=== PATIENT | female | born 1955 | race Hispanic/Latino ===

== ENCOUNTER 2018-07-12 06:07 | Inpatient (IN) | payer MEDICARE ==
[2018-06-30 15:07] VITALS: BMI 41.5
--- NOTE | 2018-07-12 07:19 | CP.PCM.CON ---
History of Present Illness - History of Present Illness History of Present Illness: Orthopedic consult: Dr. Serna Patient is a 63 y/o female who presents for elective revision right total knee replacement. The patient has a history of R TKA performed in 2014. In March 2019, she reports a twisting injury and an additional fall injury days later during her trip to [place]. Following her trip, she has had progressive pain and dysfunction of her right knee hindering her usual activities such as walking, stair-climbing and transferring from the bed. She has had to use a cane for the past few months due to the pain. Her pain is resistant to conservative means as exercises and oral medications. She denies any thromboembolic or cardiac events. She currently denies CP/SOB/N/V/D/fever/dysuria/melena. PMH: Asthma, gastric ulcer, RA, hypothyroidism PSH: R TKA 2014, L TKA and revision TKA 2013, b/l knee arthroscopies, meds: prednisone, Rituxan, CoQ10 allergy:PCN, celebrex(rash), melon SH: denies tobacco, ETOH socially Review of Systems - Review of Systems All systems: reviewed and no additional remarkable complaints except Review of Systems: as per HPI Past Patient History - Past Medical History & Family History Past Medical History?: Yes Past Family History: Reviewed and not pertinent - Past Social History Smoking Status: Never Smoked Alcohol: Social Drugs: Denies - CARDIAC Hx Cardiac Disorders: No - PULMONARY Hx Respiratory Disorders: Yes Hx Asthma: Yes Hx Pneumonia: Yes Other/Comment: INTERSTITIAL LUNG DISEASE - NEUROLOGICAL Hx Neurological Disorder: No - HEENT Hx HEENT Problems: Yes Hx Cataracts: Yes - RENAL Hx Chronic Kidney Disease: No - ENDOCRINE/METABOLIC Hx Endocrine Disorders: Yes Hx Hypothyroidism: Yes - HEMATOLOGICAL/ONCOLOGICAL Hx Blood Disorders: No Hx Blood Transfusions: No - INTEGUMENTARY Hx Dermatological Problems: No - MUSCULOSKELETAL/RHEUMATOLOGICAL Hx Musculoskeletal Disorders: Yes Hx Arthritis: Yes Hx Back Pain: Yes Hx Falls: Yes Hx Osteoarthritis: Yes Hx Rheumatoid Arthritis: Yes Other/Comment: MUSCLE WEAKNESS;LIMITED JOINT MOTION - GASTROINTESTINAL Hx Gastrointestinal Disorders: No - GENITOURINARY/GYNECOLOGICAL Hx Genitourinary Disorders: No - PSYCHIATRIC Hx Emotional Abuse: No Hx Physical Abuse: No - SURGICAL HISTORY Hx Surgeries: Yes Hx Arthroscopy: Yes (ROYER KNEE) Hx Cataract Extraction: Yes (2015 both eyes) Hx Joint Replacement: Yes (LEFT [id number] .RIGHT KNEE DECEMBER 2014) Other/Comment: RIGHT EYE RETINAL REPAIR-2016;SINUS SURGERY-2008;LAP BANDING - 2007 AND AFTER 2 WEEKS REMOVAL OF LAP BAND SECONDARY TO ALLERGY-2005;[id number] KNEE MENISCUS REPAIR;2013-LEFT TOTAL KNEE REPLACEMENT;[id number] OF LEFT KNEE;DECEMBER 2014-RIGHT TOTAL KNEE REPLACEMENT - ANESTHESIA Hx Anesthesia: Yes Hx Anesthesia Reactions: Yes (NAUSEA/VOMITTING;URINARY RETENTION) Hx Malignant Hyperthermia: No Has any member of the family had a problem w/ anesthesia?: No Meds Allergies/Adverse Reactions: Allergies Allergy/AdvReac Type Severity Reaction Status Date / Time celecoxib [From Celebrex] Allergy RASH Verified 06/30/18 15:09 leflunomide [From Arava] Allergy SWELLING Verified 06/30/18 15:08 melon Allergy SWELLING Verified 06/30/18 15:10 Penicillins Allergy RASH Verified 06/30/18 15:09 Physical Exam - Constitutional Appears: Well, No Acute Distress - Head Exam Head Exam: ATRAUMATIC, NORMOCEPHALIC - Eye Exam Eye Exam: EOMI, Normal appearance, PERRL - ENT Exam ENT Exam: Mucous Membranes Moist - Respiratory Exam Respiratory Exam: NORMAL BREATHING PATTERN - Cardiovascular Exam Cardiovascular Exam: +S1, +S2 - GI/Abdominal Exam GI & Abdominal Exam: Soft. absent: Tenderness - Extremities Exam Additional comments: R knee: midline incision well healed diffuse tenderness mild effusion and swelling ROM 0-90 deg sensation intact SP/DP/TN motor intact EHl/FHl/TA/G pedal pulses intact calves soft NT b/l - Neurological Exam Neurological exam: Alert, Oriented x3 - Psychiatric Exam Psychiatric exam: Normal Affect, Normal Mood - Skin Skin Exam: Normal Color, Warm Results - Vital Signs Recent Vital Signs: Last Vital Signs Temp 98.4 F 07/12/18 06:48 Pulse 73 07/12/18 06:48 Resp 18 07/12/18 06:48 BP 116/75 07/12/18 06:48 Pulse Ox 99 07/12/18 06:48 - Labs Result Diagrams: 07/12/18 07:31 Assessment & Plan (1) Painful total knee replacement, right Assessment and Plan: -OR today for revision R TKA with Dr. Serna -Risks/benefits/alternatives were explained to patient who understands and agrees to proceed with procedure above -Medical clearance in chart -Solumedrol 50mg IV x 3 doses then resume daily prednisone postop -TXA 1gm prior to procedure -above d/w Dr. Serna in agreement Status: Acute
[2018-07-12] MEDS ORDERED: methylPREDNISolone 50 MG in Sodium Chloride 0.9% 50 ML IV STA ×2 (07:34→08:00)
[2018-07-12 07:38] LABS: BASO % 0.7 % (0.0-2.0); EOS # 0.2 K/uL (0.0-0.7); EOS % 2.8 % (0.0-4.0); LYMPH # 1.6 K/uL (1.0-4.3); LYMPH % 28.8 % (20.0-40.0); MEAN CELL VOLUME 94.3 fl (81.0-99.0); MEAN CORPUSCULAR HEMOGLOBIN 31.8 pg (27.0-31.0); MEAN CORPUSCULAR HGB CONC 33.8 g/dL (33.0-37.0); MEAN PLATELET VOLUME 8.2 fl (7.2-11.7); MONO # 0.5 K/uL (0.0-0.8); MONO % 9.2 % (0.0-10.0); NEUT # 3.3 K/uL (1.8-7.0); NEUT % 58.5 % (50.0-75.0); NRBC % 0.1 % (0.0-0.0); RBC 4.08 Mil/uL (3.80-5.20); WHITE BLOOD COUNT 5.6 K/uL (4.8-10.8)
--- NOTE | 2018-07-12 07:45 | CP.PCM.HP ---
<Brooks Crabtree - Last Filed: 07/12/18 10:41> History of Present Illness - History of Present Illness History of Present Illness: 63 y/o Female with PMHx of Upper Interstitial lung disease, rheumatoid arthritis, hypothyroidism, Asthma, and hyperlipidemia was seen and evaluated in Same day Surgery for Right Knee Revisional Surgery today with Dr. France. Patient reports she had RIGHT total knee replacement in December of 2014, and then in March of 2018 she twisted her knee, and fell. Patient reports pain since the fall, exacerbated by walking and activity and alleviated by rest. Patient reports seeing physical therapy with no relief. Patient reports moderate activity at home. Patient lives in a single-level home with 4 stairs. Patient uses a cane at this time for ambulation. Patient with recent hx of Pneumonia from April 2018, completed 3 weeks of Levaquin. Patient states she takes R ituxan Q6, last took in November 2017. Patient denies fever, nausea, vomiting, shortness of breath, abdominal pain, dysuria, polyuria or chest pain at this time. Patient's NPO status was confirmed. Patient's present at bedside. Allergies: Celecoxib, Leflunomide, Melon, penicillins Medication: see med reconciliation PMH: as mentioned PSH: Total RIGHT hip replacement (December 2014) Social: denies smoke drinking or drug use PMD: Dr. Salazar Template Checker: Dr. Uriostegui Patient medical and cardiac clearance noted in chart Normal PFTs Present on Admission - Present on Admission Any Indicators Present on Admission: Yes Review of Systems - Constitutional Constitutional: absent: Chills, Fever - EENT Eyes: absent: Blurred Vision, Change in Vision Ears: absent: Dizziness - Cardiovascular Cardiovascular: absent: Chest Pain, Chest Pain at Rest, Chest Pain with Activity - Respiratory Respiratory: absent: Dyspnea, Dyspnea on Exertion - Gastrointestinal Gastrointestinal: absent: Constipation, Diarrhea, Nausea, Vomiting - Neurological Neurological: absent: Numbness, Tingling Past Patient History - Past Medical History & Family History Past Medical History?: Yes Past Family History: Reviewed and not pertinent - Past Social History Smoking Status: Never Smoked Alcohol: Social Drugs: Denies - CARDIAC Hx Cardiac Disorders: No - PULMONARY Hx Respiratory Disorders: Yes Hx Asthma: Yes Hx Pneumonia: Yes Other/Comment: INTERSTITIAL LUNG DISEASE - NEUROLOGICAL Hx Neurological Disorder: No - HEENT Hx HEENT Problems: Yes Hx Cataracts: Yes - RENAL Hx Chronic Kidney Disease: No - ENDOCRINE/METABOLIC Hx Endocrine Disorders: Yes Hx Hypothyroidism: Yes - HEMATOLOGICAL/ONCOLOGICAL Hx Blood Disorders: No Hx Blood Transfusions: No - INTEGUMENTARY Hx Dermatological Problems: No - MUSCULOSKELETAL/RHEUMATOLOGICAL Hx Musculoskeletal Disorders: Yes Hx Arthritis: Yes Hx Back Pain: Yes Hx Falls: Yes Hx Osteoarthritis: Yes Hx Rheumatoid Arthritis: Yes Other/Comment: MUSCLE WEAKNESS;LIMITED JOINT MOTION - GASTROINTESTINAL Hx Gastrointestinal Disorders: No - GENITOURINARY/GYNECOLOGICAL Hx Genitourinary Disorders: No - PSYCHIATRIC Hx Emotional Abuse: No Hx Physical Abuse: No - SURGICAL HISTORY Hx Surgeries: Yes Hx Arthroscopy: Yes (ROYER KNEE) Hx Cataract Extraction: Yes (2015 both eyes) Hx Joint Replacement: Yes (LEFT [id number] .RIGHT KNEE DECEMBER 2014) Other/Comment: RIGHT EYE RETINAL REPAIR-2016;SINUS SURGERY-2008;LAP BANDING - 2007 AND AFTER 2 WEEKS REMOVAL OF LAP BAND SECONDARY TO ALLERGY-2005;[id number] KNEE MENISCUS REPAIR;2013-LEFT TOTAL KNEE REPLACEMENT;[id number] OF LEFT KNEE;DECEMBER 2014-RIGHT TOTAL KNEE REPLACEMENT - ANESTHESIA Hx Anesthesia: Yes Hx Anesthesia Reactions: Yes (NAUSEA/VOMITTING;URINARY RETENTION) Hx Malignant Hyperthermia: No Has any member of the family had a problem w/ anesthesia?: No Meds Allergies/Adverse Reactions: Allergies Allergy/AdvReac Type Severity Reaction Status Date / Time celecoxib [From Celebrex] Allergy RASH Verified 06/30/18 15:09 leflunomide [From Arava] Allergy SWELLING Verified 06/30/18 15:08 melon Allergy SWELLING Verified 06/30/18 15:10 Penicillins Allergy RASH Verified 06/30/18 15:09 Physical Exam - Constitutional Appears: Well, Non-toxic, No Acute Distress - Head Exam Head Exam: ATRAUMATIC, NORMOCEPHALIC - Eye Exam Eye Exam: Normal appearance - ENT Exam ENT Exam: Mucous Membranes Moist, Normal Exam - Neck Exam Neck exam: Positive for: Normal Inspection - Respiratory Exam Respiratory Exam: Clear to Auscultation Bilateral, NORMAL BREATHING PATTERN. absent: Rales, Rhonchi, Wheezes - Cardiovascular Exam Cardiovascular Exam: REGULAR RHYTHM, +S1, +S2 - GI/Abdominal Exam GI & Abdominal Exam: Normal Bowel Sounds, Soft. absent: Distended, Firm, Guarding - Extremities Exam Extremities exam: Positive for: normal capillary refill, tenderness Additional comments: painful right knee range of motion, bruising noted to the right knee, previous surgical scar noted - Neurological Exam Neurological exam: Alert, Oriented x3 - Psychiatric Exam Psychiatric exam: Normal Affect, Normal Mood - Skin Skin Exam: Normal Color Results - Vital Signs Recent Vital Signs: Last Vital Signs Temp 98.4 F 07/12/18 06:48 Pulse 73 07/12/18 06:48 Resp 18 07/12/18 06:48 BP 116/75 07/12/18 06:48 Pulse Ox 99 07/12/18 06:48 - Labs Result Diagrams: 07/12/18 07:31 Labs: Laboratory Results - last 24 hr 07/12/18 07/12/18 07:31 07:31 WBC 5.6 RBC 4.08 Hgb 13.0 Hct 38.5 MCV 94.3 MCH 31.8 H MCHC 33.8 RDW 14.0 Plt Count 208 MPV 8.2 Neut % (Auto) 58.5 Lymph % (Auto) 28.8 Elmore % (Auto) 9.2 Eos % (Auto) 2.8 Baso % (Auto) 0.7 Neut # (Auto) 3.3 Lymph # (Auto) 1.6 Elmore # (Auto) 0.5 Eos # (Auto) 0.2 Baso # (Auto) 0.0 Crossmatch See Detail BBK History Checked No verified bt Assessment & Plan - Assessment and Plan (Free Text) Assessment: 64 y/o female patient seen and evaluated in [facility] for Right Knee Revisional Surgery today with Dr. France Plan: RIGHT Knee Revisional Surgery - medical clearance in chart - Pain management - OT/PT - F/U CBC/BMP - F/U Urine Culture - Abx as per Orthopedics Pulmonary Interstitial Lung Disease with adrenal insufficiency - chronic, stable - continue home medication- Breo Ellipta HS, Prednisone 5 mg PO DAILY Hyperlipidemia - chronic, controlled - continue home medication- Simvastatin 40 mg PO HS Asthma - chronic, stable - continue home medication- Montelukast 10 mg PO HS Hypothyroidism - chronic, stable - continue home medication- Synthroid 88 mcg DAILY Rheumatoid Arthritis - chronic arthritis - Continue home medication- Alendronate 70 mg PO QWK, Rituxan 100 mg/10 ml Q6 months DVT Prophylaxis - Lovenox 40 mg DAILY <Michelle Arguello - Last Filed: 07/12/18 14:40> Results - Vital Signs Recent Vital Signs: Last Vital Signs Temp 98.4 F 07/12/18 06:48 Pulse 73 07/12/18 06:48 Resp 18 07/12/18 06:48 BP 116/75 07/12/18 06:48 Pulse Ox 99 07/12/18 06:48 - Labs Result Diagrams: 07/12/18 07:31 Labs: Laboratory Results - last 24 hr 07/12/18 07/12/18 07/12/18 07:31 07:31 08:00 WBC 5.6 RBC 4.08 Hgb 13.0 Hct 38.5 MCV 94.3 MCH 31.8 H MCHC 33.8 RDW 14.0 Plt Count 208 MPV 8.2 Neut % (Auto) 58.5 Lymph % (Auto) 28.8 Elmore % (Auto) 9.2 Eos % (Auto) 2.8 Baso % (Auto) 0.7 Neut # (Auto) 3.3 Lymph # (Auto) 1.6 Elmore # (Auto) 0.5 Eos # (Auto) 0.2 Baso # (Auto) 0.0 Fluid Type Blood Type O NEGATIVE Blood Type Confirm O NEGATIVE Antibody Screen Negative Crossmatch See Detail BBK History Checked No verified bt 07/12/18 07/12/18 12:35 13:20 WBC RBC Hgb Hct MCV MCH MCHC RDW Plt Count MPV Neut % (Auto) Lymph % (Auto) Elmore % (Auto) Eos % (Auto) Baso % (Auto) Neut # (Auto) Lymph # (Auto) Elmore # (Auto) Eos # (Auto) Baso # (Auto) Fluid Type Synovial fluid Synovial fluid Blood Type Blood Type Confirm Antibody Screen Crossmatch BBK History Checked Attending/Attestation - Attestation I have personally seen and examined this patient.: Yes I have fully participated in the care of the patient.: Yes I have reviewed all pertinent clinical information: Yes Notes (Text): Hx of Right TKR -scheduled for Revision Rheumatoid Arthritis -on Prednisone 5 mg daily and Rituxan ( last dose November 2017) -pt's PMD rec giving Solumedrol 50 mg IV prior to surgery ( Stress dose to prevent Adrenal Insuff ) Mild Intermittent Asthma - cont Breo, Singulair, Albuterol prn
[2018-07-12] MEDS ORDERED: Lactated Ringer's 1,000 ML IV ONE ×2 (08:02→15:45)
[2018-07-12] MEDS ORDERED: Absorbable Gelatin Sponge Size 12-7 ONE (09:12)
[2018-07-12] MEDS ORDERED: Bacitracin Ointment 30 GM TUBE ONE (09:13)
[2018-07-12] MEDS ORDERED: Thrombin Topical 5,000 Int Units Spray Kit ONE (09:13)
[2018-07-12] MEDS ORDERED: Succinylcholine Chloride 20 mg/ml Syr (5 ml) IV ONE (09:46)
[2018-07-12] MEDS ORDERED: Propofol 10 mg/ml Inj (20 ML) ONE ×2 (09:46→14:13)
[2018-07-12] MEDS ORDERED: Rocuronium 10 mg/ml (5 ml) ONE ×3 (09:46→12:30)
[2018-07-12] MEDS ORDERED: Sevoflurane - Inhalation Anesthetic Liq (250 ml) ONE (09:56)
[2018-07-12] MEDS ORDERED: Tranexamic Acid 1,000 MG in Sodium Chloride 0.9% 100 ML IVPB ONE (10:00)
[2018-07-12] MEDS ORDERED: Midazolam 2 MG/2 ML VIAL ONE (11:03)
[2018-07-12] MEDS ORDERED: Clindamycin 300 mg/2 ml Inj IVPB ONE (11:45)
[2018-07-12 12:42] LABS: FLUID TYPE SYNOVIAL FLUID
[2018-07-12 13:25] LABS: FLUID TYPE SYNOVIAL FLUID
[2018-07-12] MEDS ORDERED: Neostigmine 1:1000 (1 mg/ml) Inj ONE (14:05)
[2018-07-12] MEDS ORDERED: Lactated Ringer's 500 ML IV ONE ×2 (14:25)
[2018-07-12] MEDS ORDERED: Oxycodone/Acetaminophen 5/325 mg Tab PO PRN (14:26)
[2018-07-12] MEDS ORDERED: HYDROmorphone 0.5 mg/0.5 ml ISec IVP PRN (14:31)
--- NOTE | 2018-07-12 14:34 | PCM.ANESB3 ---
Femoral Nerve Block - Femoral Nerve Block Date of Procedure: 07/12/18 Anesthesiologist: Brit Pre-Procedure Diagnosis: Failed right total knee arthroplasty Post-Procedure Diagnosis: same Procedure Performed: Femoral Nerve Block Right - Procedure Femoral Nerve Block: The procedure was explained to the patient that it is for the post-operative pain management. Consent was obtained after a thorough discussion with the patient regarding the benefits and possible complications of local anesthetic block of the femoral nerve at the inguinal crease area. The patient was brought to the operating room and standard monitors were applied. Time-out was held with the circulating nurse to confirm the correct surgery and the appropriate block. Under general anesthesia, patient was placed in supine position with fully extended lower extremities and the ____right____ groin exposed. The femoral artery was then carefully palpated. The ultrasound transducer was then applied to this area in the transverse plane and the femoral nerve was visualized lateral to the femoral artery and underneath the fascia iliaca. After thorough identification, the inguinal crease area was prepped with Chloraprep. At this point, a #22 gauge Stimuplex 2-inch needle was inserted immediately lateral to the femoral artery pulse at the inguinal crease and advanced perpendicularly. The needle was inserted to the ultrasound transducer in-plane towards the femoral nerve in a [id number] direction. Needle advancement was performed carefully under direct ultrasound visualization. Nerve stimulator was used and twitch of the quadriceps muscle was obtained at current of __0.4___MA. After negative aspiration, __2___cc of __0.375% ___% ___bupivacaine with 1:200,000 epinephrine was injected and this was followed with ___18___ cc of __0.375% % __bupivacaine with 1:200,000 epinephrine . Under ultrasound guidance the local anesthetics were observed spreading below fascia iliaca and around the femoral nerve. The needle was removed intact. The patient tolerated the femoral nerve block well with stable vital signs and was prepared for subsequent surgery.
--- NOTE | 2018-07-12 14:36 | PCM.ANESB2 ---
Popliteal Nerve Block - Popliteal Nerve Block Date of Procedure: 07/12/18 Anesthesiologist: Brti Pre-Procedure Diagnosis: Failed right total knee arthroplasty Post-Procedure Diagnosis: Same Procedure Performed: Popliteal Nerve Block Right - Procedure Popliteal Nerve Block: This procedure was explained to the patient that it is for post-operative pain management. Consent was obtained after a thorough discussion with the patient regarding the benefits and possible complications of local anesthetic block of the sciatic nerve at the popliteal level. The patient was brought to the operating room and standard monitors are applied. Time-out was held with the circulating nurse to confirm the correct surgery and the appropriate block.Under general anesthesia, patient's operative leg was gently raised and supported and the groove in between the biceps femoris and vastus lateralis muscles was carefully palpated. The skin approximately 8cm above the popliteal crease was th en marked. The ultrasound transducer was then applied to the posterior thigh approximately 8cm above the popliteal crease in the transverse plane and the sciatic nerve before its division was visualized lateral to the popliteal artery and in between the bicep femoris and semimembranosus/semitendinosus muscles. After identification, the lateral portion of the thigh was prepped with Chloraprep. At this point, a # 21 gauge Stimuplex insulated 4 inch needle was inserted into pre-marked area and advanced in a perpendicular direction. The needle was inserted above the ultrasound transducer in-plane towards the sciatic nerve in a [id number] direction. Needle advancement was performed carefully under direct ultrasound visualization. Nerve stimulator was used and dorsiflexion of the __right___ foot was elicited at a current of __0.4___ MA. After repeated negative aspiration, __2___cc of __0.375% ___ % ___bupivacaine was injected and this was flowed with __18____ cc of _0.375 % _bupivacaine with 1:200,000 epinephrine . Under ultrasound guidance the local anesthetics were observed surrounding sciatic nerve . The needle was removed intact. The patient tolerated the popliteal nerve block well with stable vital signs and was subsequently prepared for the surgery.
[2018-07-12 14:45] LABS: SF GROSS APPEARANCE TURBID (CLEAR)
[2018-07-12 14:46] LABS: SYNOVIAL FLUID COMMENT MODERATELY BLOODY; SYNOVIAL FLUID MONO/MACROPHAGE 10 % (0-0)
[2018-07-12 14:46] LABS: SF GROSS APPEARANCE CLOUDY (CLEAR)
[2018-07-12 14:47] LABS: SYNOVIAL FLUID COMMENT SLIGHTLY BLOODY; SYNOVIAL FLUID MONO/MACROPHAGE 2 % (0-0)
--- NOTE | 2018-07-12 15:01 | PCM.SURG1 ---
Surgeon's Initial Post Op Note - Surgeon's Notes Surgeon: Kareem Business Process Architect: SLADE Glover/ 2nd assist Julianna;earnest Ponce PA-C Type of Anesthesia: General Endo, Spinal, Block Regional Anesthesia Administered By: DR Abdias Mistry Pre-Operative Diagnosis: Painful/Unstable Total Knee Replacement. Medial collateral ligament partial rupture Operative Findings: fracture tibial polyethylene. partial rupture Medial collatreral ligament. synovits- anterior and posterior. posterior capsular contracture Post-Operative Diagnosis: as above Operation Performed: Revision Total Knee Replacement -1 componenet. primary repair/ reinforcemnt Medial collateral ligament. posterior capsular release. anterior and posterior synovectomy. excision skin/subcutaneous tissue Specimen/Specimens Removed: fracture tibial poly. synovium. posterior capsule Estimated Blood Loss: EBL {In ML}: 20 Blood Products Given: N/A Drains Used: Hemovac Post-Op Condition: Fair Date of Surgery/Procedure: 07/12/18 Time of Surgery/Procedure: 12:15 (time in room/anaesthesia indcution time 11:00)
--- NOTE | 2018-07-12 15:22 | RAD ---
Date of service: 07/12/2018 PROCEDURE: Right Knee Radiographs. HISTORY: s/p revision R TKA COMPARISON: None. FINDINGS: BONES: Postoperative changes are identified comprised of limited emphysematous changes and local soft tissue edema status post right total knee replacement. Orthopedic hardware appears in good apparent position including distal femur and proximal tibial components. Surgical drains identified a superior portion the knee soft tissues anteriorly and skin marky are identified anteriorly as well. No subluxation or dislocation apparent. JOINTS: As above. JOINT EFFUSION: As above. OTHER FINDINGS: None. IMPRESSION: Status post right total knee replacement with postoperative changes as discussed above. Surgical drain identified in situ. No fracture, subluxation or dislocation.
[2018-07-12] MEDS ORDERED: Clindamycin 600mg/50ml D5W 600 MG/50 ML VIAL IVPB SCH ×2 (17:00→19:00)
[2018-07-12] MEDS ORDERED: methylPREDNISolone 50 MG in Sodium Chloride 0.9% 50 ML IVPB SCH (19:30)
[2018-07-12] MEDS ORDERED: methylPREDNISolone 50 MG in Sodium Chloride 0.9% 50 ML IV SCH (19:45)
[2018-07-12] MEDS: Clindamycin 600mg/50ml D5W 600 MG/50 ML VIAL IVPB SCH (20:56)
[2018-07-12] MEDS: Docusate-Senna 50 mg-8.6 mg Tab PO SCH (21:02)
[2018-07-12] MEDS: BREO ELLIPTA INH SCH (21:06)
[2018-07-12] MEDS: Lactated Ringer's 1,000 ML IV SCH (23:52)
[2018-07-13] MEDS: Clindamycin 600mg/50ml D5W 600 MG/50 ML VIAL IVPB SCH ×3 (02:03→19:45)
[2018-07-13] MEDS: Levothyroxine 88 MCG TAB PO SCH (05:54)
[2018-07-13 06:23] LABS: HEMOGLOBIN 11.9 g/dL (12.0-16.0); MEAN CELL VOLUME 96.9 fl (81.0-99.0); MEAN CORPUSCULAR HEMOGLOBIN 31.7 pg (27.0-31.0); MEAN CORPUSCULAR HGB CONC 32.7 g/dL (33.0-37.0); RBC 3.75 Mil/uL (3.80-5.20); RED CELL DISTRIBUTION WIDTH 13.9 % (11.5-14.5); WHITE BLOOD COUNT 12.4 K/uL (4.8-10.8)
[2018-07-13 06:39] LABS: BLOOD UREA NITROGEN 14 mg/dl (7-17); CALCIUM 8.6 mg/dL (8.4-10.2); GFR NON-AFRICAN AMERICAN > 60
--- NOTE | 2018-07-13 08:37 | CP.PCM.PN ---
Subjective - Date & Time of Evaluation Date of Evaluation: 07/13/18 Time of Evaluation: 08:00 - Subjective Subjective: Patient seen and examined at bedside comfortable. Pain is well controlled, effects of nerve block still in effect. No other complaints. Denies CP/SOB/N/fever. Objective - Vital Signs/Intake and Output Vital Signs (last 24 hours): Temp Pulse Resp BP Pulse Ox 98.4 F 60 20 107/73 97 07/13/18 08:14 07/13/18 08:14 07/13/18 08:14 07/13/18 08:14 07/13/18 08:14 Intake and Output: 07/13/18 07/13/18 06:59 18:59 Intake Total 1200 Output Total 2530 Balance -1330 - Medications Medications: Current Medications Acetaminophen (Tylenol 325mg Tab) 650 mg PO Q4 PRN PRN Reason: Fever 101 degrees fahrenheit Atorvastatin Calcium (Lipitor) 20 mg PO [facility] Last Admin: 07/12/18 21:04 Dose: 20 mg Calcium/Vitamin D (Citracal+D 315mg/250iu) 1 tab PO DAILY [facility] Cholecalciferol (Vitamin D) 2,000 intlu PO DAILY [facility] Enoxaparin Sodium (Lovenox) 40 mg SC DAILY [facility]; Protocol Ferrous Sulfate (Feosol) 325 mg PO BID [facility] Last Admin: 07/12/18 18:24 Dose: 325 mg Folic Acid (Folic Acid) 1 mg PO DAILY [facility] Home Med (Patient's Own Medication) 1 unit INH [facility] Last Admin: 07/12/18 21:06 Dose: 1 unit Lactated Ringer's (Lactated Ringer's) 1,000 mls @ 100 mls/hr IV .Q10H [facility] Last Admin: 07/12/18 23:52 Dose: 100 mls/hr Lactated Ringer's (Lactated Ringer's) 1,000 mls @ 100 mls/hr IV .Q10H [facility] Clindamycin Phosphate (Cleocin) 600 mg in 50 mls @ 100 mls/hr IVPB Q8 @0300,1100,1900 [facility]; Protocol Last Admin: 07/13/18 02:03 Dose: 100 mls/hr Lactobacillus Acidophilus (Bacid Acidophilus) 1 cap PO DAILY [facility] Levothyroxine Sodium (Synthroid) 88 mcg PO DAILY@0630 [facility] Last Admin: 07/13/18 05:54 Dose: 88 mcg Methylprednisolone (Solu-Medrol) 50 mg IV Q8H [facility] Montelukast Sodium (Singulair) 10 mg PO HS [facility] Last Admin: 07/12/18 21:04 Dose: 10 mg Morphine Sulfate (Morphine) 2 mg IVP Q4 PRN PRN Reason: Pain, severe (8-10) Multivitamins/Minerals (Therapeutic-M Tab) 1 tab PO DAILY [facility] Ondansetron HCl (Zofran Inj) 4 mg IVP ONCE PRN PRN Reason: Nausea/Vomiting Oxycodone/Acetaminophen (Percocet 5/325 Mg Tab) 1 tab PO Q4 PRN PRN Reason: Pain, Mild (1-3) Stop: 07/15/18 14:27 Oxycodone/Acetaminophen (Percocet 5/325 Mg Tab) 2 tab PO Q4 PRN PRN Reason: Pain, moderate (4-7) Stop: 07/15/18 14:27 Prednisone (Prednisone Tab) 5 mg PO DAILY [facility] Senna/Docusate Sodium (Senokot S 50 Mg-8.6 Mg) 2 tab PO [facility] Last Admin: 07/12/18 21:02 Dose: 2 tab - Labs Labs: 07/13/18 05:30 07/13/18 05:30 - Extremities Exam Additional comments: R knee: Knee imm in place Dressings CDI Hemovac in place with minimal bloody drainage sensation diminished to SP/DP/TN due to block unable to assess motor 2nd to block pedal pulse intact calves soft NT b/l Pt. reassessed at 14:00 SP/DP/TN intact Motor intact EHL/FHL/TA/G Assessment and Plan (1) Painful total knee replacement, right Assessment & Plan: POD#1 s/p R revision TKA -Hemovac removed -CPM and knee imm as per order -pain control -PT/OT PWB 25% -DVT ppx -d/c planning for tomorrow -above d/w Dr. Serna in agreement Status: Acute
[2018-07-13] MEDS ORDERED: UBIDECARENONE 300 MG PO SCH (09:00)
--- NOTE | 2018-07-13 09:27 | PQF ---
PROVIDER RESPONSE TEXT: Provider was unable to determine a response for this query. REVIEWER QUERY TEXT: Rheumatoid Arthritis Specificity Rheumatoid arthritis is documented in the Medical Record. History of Upper Interstitial Lung Disease and Asthma Please clarify the specific site and laterality. Please also specify any associated cond itions Such as -- Bursitis -- Felty?s syndrome -- Juvenile (Please specify type) -- Myopathy -- Nodule -- Organ involvement (Please indicate organ involved and specific disorder) -- Polyneuropathy -- With Rheumatoid Factor -- Other, please specify The patient's Clinical Indicators include: Query created by: Melina Melendrez on 07/13/2018 7:54 AM Electronically signed by: 07/13/2018 9:25 AM
--- NOTE | 2018-07-13 09:39 | CP.PCM.PN ---
Subjective - Date & Time of Evaluation Date of Evaluation: 07/13/18 Time of Evaluation: 09:39 Objective - Vital Signs/Intake and Output Vital Signs (last 24 hours): Temp Pulse Resp BP Pulse Ox 98.4 F 60 20 107/73 97 07/13/18 08:14 07/13/18 08:14 07/13/18 08:14 07/13/18 08:14 07/13/18 08:14 Intake and Output: 07/13/18 07/13/18 06:59 18:59 Intake Total 1200 Output Total 2530 Balance -1330 - Medications Medications: Current Medications Acetaminophen (Tylenol 325mg Tab) 650 mg PO Q4 PRN PRN Reason: Fever 101 degrees fahrenheit Atorvastatin Calcium (Lipitor) [address] [facility] Last Admin: 07/12/18 21:04 Dose: 20 mg Calcium/Vitamin D (Citracal+D 315mg/250iu) 1 tab PO DAILY [facility] Cholecalciferol (Vitamin D) 2,000 intlu PO DAILY [facility] Enoxaparin Sodium (Lovenox) 40 mg SC DAILY [facility]; Protocol Ferrous Sulfate (Feosol) 325 mg PO BID [facility] Last Admin: 07/12/18 18:24 Dose: 325 mg Folic Acid (Folic Acid) 1 mg PO DAILY [facility] Home Med (Patient's Own Medication) [address] [facility] Last Admin: 07/12/18 21:06 Dose: 1 unit Lactated Ringer's (Lactated Ringer's) 1,000 mls @ 100 mls/hr IV .Q10H [facility] Last Admin: 07/12/18 23:52 Dose: 100 mls/hr Lactated Ringer's (Lactated Ringer's) 1,000 mls @ 100 mls/hr IV .Q10H [facility] Clindamycin Phosphate (Cleocin) 600 mg in 50 mls @ 100 mls/hr IVPB Q8@0300,1100,1900 [facility]; Protocol Last Admin: 07/13/18 02:03 Dose: 100 mls/hr Lactobacillus Acidophilus (Bacid Acidophilus) 1 cap PO DAILY [facility] Levothyroxine Sodium (Synthroid) 88 mcg PO DAILY@0630 [facility] Last Admin: 07/13/18 05:54 Dose: 88 mcg Methylprednisolone (Solu-Medrol) 50 mg IV Q8H [facility] Montelukast Sodium (Singulair) 10 mg PO HS [facility] Last Admin: 07/12/18 21:04 Dose: 10 mg Morphine Sulfate (Morphine) 2 mg IVP Q4 PRN PRN Reason: Pain, severe (8-10) Multivitamins/Minerals (Therapeutic-M Tab) 1 tab PO DAILY [facility] Ondansetron HCl (Zofran Inj) 4 mg IVP ONCE PRN PRN Reason: Nausea/Vomiting Oxycodone/Acetaminophen (Percocet 5/325 Mg Tab) 1 tab PO Q4 PRN PRN Reason: Pain, Mild (1-3) Stop: 07/15/18 14:27 Oxycodone/Acetaminophen (Percocet 5/325 Mg Tab) 2 tab PO Q4 PRN PRN Reason: Pain, moderate (4-7) Stop: 07/15/18 14:27 Prednisone (Prednisone Tab) 5 mg PO DAILY [facility] Senna/Docusate Sodium (Senokot S 50 Mg-8.6 Mg) [address] [facility] Last Admin: 07/12/18 21:02 Dose: 2 tab - Labs Labs: 07/13/18 05:30 07/13/18 05:30
[2018-07-13] MEDS: Cholecalciferol 1,000 INTLU TAB PO SCH (09:52)
[2018-07-13] MEDS: Citracal+D 315mg/250IU PO SCH (09:52)
[2018-07-13] MEDS: Lactobacillus Acidophilus 500 MU Cap PO SCH (09:52)
[2018-07-13] MEDS: Enoxaparin 40 mg Syringe SC SCH (11:42)
[2018-07-13] MEDS: Multivitamin With Minerals Tab PO SCH (11:45)
--- NOTE | 2018-07-13 12:06 | CP.PCM.CON ---
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 SHE HAD A RIGHT TKR IN 2014 AND IN MARCH 2018 HAD LIGAMENT PROBLEMS AND A TRAUMATIC FALL. IT WAS UNSTABLE AND SHE WAS ADMITTED YESTERDAY AND HAD A RIGHT KNEE REVISION. SHE DID WELL AND FEELS GOOD TODAY. SHE DENIES CHEST PAIN OR SOB. Past Patient History - Past Medical History & Family History Past Medical History?: Yes Past Family History: Reviewed and not pertinent - Past Social History Smoking Status: Never Smoked Alcohol: Social Drugs: Denies - CARDIAC Hx Cardiac Disorders: No - PULMONARY Hx Respiratory Disorders: Yes Hx Asthma: Yes Hx Pneumonia: Yes Other/Comment: INTERSTITIAL LUNG DISEASE - NEUROLOGICAL Hx Neurological Disorder: No - HEENT Hx HEENT Problems: Yes Hx Cataracts: Yes - RENAL Hx Chronic Kidney Disease: No - ENDOCRINE/METABOLIC Hx Endocrine Disorders: Yes Hx Hypothyroidism: Yes - HEMATOLOGICAL/ONCOLOGICAL Hx Blood Disorders: No Hx Blood Transfusions: No - INTEGUMENTARY Hx Dermatological Problems: No - MUSCULOSKELETAL/RHEUMATOLOGICAL Hx Musculoskeletal Disorders: Yes Hx Arthritis: Yes Hx Back Pain: Yes Hx Falls: Yes Hx Osteoarthritis: Yes Hx Rheumatoid Arthritis: Yes Other/Comment: MUSCLE WEAKNESS;LIMITED JOINT MOTION - GASTROINTESTINAL Hx Gastrointestinal Disorders: No - GENITOURINARY/GYNECOLOGICAL Hx Genitourinary Disorders: No - PSYCHIATRIC Hx Emotional Abuse: No Hx Physical Abuse: No - SURGICAL HISTORY Hx Surgeries: Yes Hx Arthroscopy: Yes (ROYER KNEE) Hx Cataract Extraction: Yes (2015 both eyes) Hx Joint Replacement: Yes (LEFT [id number] .RIGHT KNEE DECEMBER 2014) Other/Comment: RIGHT EYE RETINAL REPAIR-2016;SINUS SURGERY-2008;LAP BANDING - 2007 AND AFTER 2 WEEKS REMOVAL OF LAP BAND SECONDARY TO ALLERGY-2005;[id number]-DHR KNEE MENISCUS REPAIR;2013-LEFT TOTAL KNEE REPLACEMENT;[id number] OF LEFT KNEE;DECEMBER 2014-RIGHT TOTAL KNEE REPLACEMENT - ANESTHESIA Hx Anesthesia: Yes Hx Anesthesia Reactions: Yes (NAUSEA/VOMITTING;URINARY RETENTION) Hx Malignant Hyperthermia: No Has any member of the family had a problem w/ anesthesia?: No Meds Allergies/Adverse Reactions: Allergies Allergy/AdvReac Type Severity Reaction Status Date / Time celecoxib [From Celebrex] Allergy RASH Verified 06/30/18 15:09 leflunomide [From Arava] Allergy SWELLING Verified 06/30/18 15:08 melon Allergy SWELLING Verified 06/30/18 15:10 Penicillins Allergy RASH Verified 06/30/18 15:09 - Medications Medications: Current Medications Acetaminophen (Tylenol 325mg Tab) 650 mg PO Q4 PRN PRN Reason: Fever 101 degrees fahrenheit Atorvastatin Calcium (Lipitor) 20 mg PO HS [facility] Last Admin: 07/12/18 21:04 Dose: 20 mg Calcium/Vitamin D (Citracal+D 315mg/250iu) 1 tab PO DAILY [facility] Last Admin: 07/13/18 09:52 Dose: 1 tab Cholecalciferol (Vitamin D) 2,000 intlu PO DAILY [facility] Last Admin: 07/13/18 09:52 Dose: 2,000 intlu Enoxaparin Sodium (Lovenox) 40 mg SC DAILY [facility]; Protocol Last Admin: 07/13/18 11:42 Dose: 40 mg Ferrous Sulfate (Feosol) 325 mg PO BID [facility] Last Admin: 07/13/18 09:52 Dose: 325 mg Folic Acid (Folic Acid) 1 mg PO DAILY [facility] Last Admin: 07/13/18 09:52 Dose: 1 mg Home Med (Patient's Own Medication) 1 unit INH HS [facility] Last Admin: 07/12/18 21:06 Dose: 1 unit Lactated Ringer's (Lactated Ringer's) 1,000 mls @ 100 mls/hr IV .Q10H [facility] Last Admin: 07/12/18 23:52 Dose: 100 mls/hr Lactated Ringer's (Lactated Ringer's) 1,000 mls @ 100 mls/hr IV .Q10H [facility] Clindamycin Phosphate (Cleocin) 600 mg in 50 mls @ 100 mls/hr IVPB Q8@0300,1100,1900 [facility]; Protocol Last Admin: 07/13/18 02:03 Dose: 100 mls/hr Lactobacillus Acidophilus (Bacid Acidophilus) 1 cap PO DAILY [facility] Last Admin: 07/13/18 09:52 Dose: 1 cap Levothyroxine Sodium (Synthroid) 88 mcg PO DAILY@0630 [facility] Last Admin: 07/13/18 05:54 Dose: 88 mcg Methylprednisolone (Solu-Medrol) 50 mg IV Q8H [facility] Montelukast Sodium (Singulair) 10 mg PO HS [facility] Last Admin: 07/12/18 21:04 Dose: 10 mg Morphine Sulfate (Morphine) 2 mg IVP Q4 PRN PRN Reason: Pain, severe (8-10) Multivitamins/Minerals (Therapeutic-M Tab) 1 tab PO DAILY [facility] Last Admin: 07/13/18 11:45 Dose: 1 tab Ondansetron HCl (Zofran Inj) 4 mg IVP ONCE PRN PRN Reason: Nausea/Vomiting Oxycodone/Acetaminophen (Percocet 5/325 Mg Tab) 1 tab PO Q4 PRN PRN Reason: Pain, Mild (1-3) Stop: 07/15/18 14:27 Oxycodone/Acetaminophen (Percocet 5/325 Mg Tab) 2 tab PO Q4 PRN PRN Reason: Pain, moderate (4-7) Stop: 07/15/18 14:27 Prednisone (Prednisone Tab) 5 mg PO DAILY [facility] Senna/Docusate Sodium (Senokot S 50 Mg-8.6 Mg) 2 tab PO [facility] Last Admin: 07/12/18 21:02 Dose: 2 tab Physical Exam - Respiratory Exam Respiratory Exam: Clear to Auscultation Bilateral - Cardiovascular Exam Cardiovascular Exam: REGULAR RHYTHM, +S1, +S2 - Extremities Exam Additional comments: RIGHT KNEE WITH DRESSINGS NO EDEMA OF LLE - Additional Findings Additional findings: OR NOTES REVIEWED PAT TESTS REVIEWED EKG NSR Results - Vital Signs Recent Vital Signs: Last Vital Signs Temp 98.4 F 07/13/18 08:14 Pulse 78 07/13/18 10:54 Resp 20 07/13/18 08:14 BP 107/73 07/13/18 08:14 Pulse Ox 98 07/13/18 10:54 - Labs Result Diagrams: 07/13/18 05:30 07/13/18 05:30 Labs: Laboratory Results - last 24 hr 07/12/18 07/12/18 07/13/18 12:35 13:20 05:30 WBC 12.4 H D RBC 3.75 L Hgb 11.9 L Hct 36.4 MCV 96.9 D MCH 31.7 H MCHC 32.7 L RDW 13.9 Plt Count 224 Sodium Potassium Chloride Carbon Dioxide Anion Gap BUN Creatinine Est GFR ( Amer) Est GFR (Non-Af Amer) Random Glucose Calcium Fluid Type Synovial fluid Synovial fluid Synovial WBC 49.0 16.0 Synovial RBC 8168.0 H 3069.0 H Synovial Neutrophils 10.0 H 21.0 H Synovial Lymphocytes 80.0 H 27.0 H Synov Monos/Macrophage 10 H 2 H Synovial Fluid Comment Moderately bloody Slightly bloody 07/13/18 05:30 WBC RBC Hgb Hct MCV MCH MCHC RDW Plt Count Sodium 138 Potassium 4.7 Chloride 106 Carbon Dioxide 26 Anion Gap 11 BUN 14 Creatinine 0.8 Est GFR ( Amer) > 60 Est GFR (Non-Af Amer) > 60 Random Glucose 112 H Calcium 8.6 Fluid Type Synovial WBC Synovial RBC Synovial Neutrophils Synovial Lymphocytes Synov Monos/Macrophage Synovial Fluid Comment Assessment & Plan - Assessment and Plan (Free Text) Assessment: SURGICAL REVISION OF RIGHT TKR HYPERLIPIDEMIA RA COPD AND INTERSTITIAL LUNG DISEASE Plan: CONTINUE ANTIBIOTICS, ATORVASTATIN, LOVENOX AND COPD MEDICATIONS FOR REHAB
--- NOTE | 2018-07-13 12:40 | CP.PCM.PN ---
Subjective - Date & Time of Evaluation Date of Evaluation: 07/13/18 Time of Evaluation: 12:37 - Subjective Subjective: 63 y/o female with PMHx of Upper Left Interstitial lung disease, rheumatoid arthritis, hypothyroidism, Asthma, and hyperlipidemia was seen and evaluated for Right Knee Revisional Surgery POD1. Patient states she has some pain overnight, however, it is controlled. Patient was evaluated by physical therapy. Patient denies any complaints of fever, nausea, vomiting, SOB or CP. Objective - Vital Signs/Intake and Output Vital Signs (last 24 hours): Temp Pulse Resp BP Pulse Ox 98.4 F 78 20 107/73 98 07/13/18 08:14 07/13/18 10:54 07/13/18 08:14 07/13/18 08:14 07/13/18 10:54 Intake and Output: 07/13/18 07/13/18 06:59 18:59 Intake Total 1200 Output Total 2530 Balance -1330 - Medications Medications: Current Medications Acetaminophen (Tylenol 325mg Tab) 650 mg PO Q4 PRN PRN Reason: Fever 101 degrees fahrenheit Atorvastatin Calcium (Lipitor) 20 mg PO HS [facility] Last Admin: 07/12/18 21:04 Dose: 20 mg Calcium/Vitamin D (Citracal+D 315mg/250iu) 1 tab PO DAILY [facility] Last Admin: 07/13/18 09:52 Dose: 1 tab Cholecalciferol (Vitamin D) 2,000 intlu PO DAILY [facility] Last Admin: 07/13/18 09:52 Dose: 2,000 intlu Enoxaparin Sodium (Lovenox) 40 mg SC DAILY [facility]; Protocol Last Admin: 07/13/18 11:42 Dose: 40 mg Ferrous Sulfate (Feosol) 325 mg PO BID [facility] Last Admin: 07/13/18 09:52 Dose: 325 mg Folic Acid (Folic Acid) 1 mg PO DAILY [facility] Last Admin: 07/13/18 09:52 Dose: 1 mg Home Med (Patient's Own Medication) 1 unit INH HS [facility] Last Admin: 07/12/18 21:06 Dose: 1 unit Lactated Ringer's (Lactated Ringer's) 1,000 mls @ 100 mls/hr IV .Q10H [facility] Last Admin: 07/12/18 23:52 Dose: 100 mls/hr Lactated Ringer's (Lactated Ringer's) 1,000 mls @ 100 mls/hr IV .Q10H [facility] Clindamycin Phosphate (Cleocin) 600 mg in 50 mls @ 100 mls/hr IVPB Q8@0300,1100,1900 [facility]; Protocol Last Admin: 07/13/18 02:03 Dose: 100 mls/hr Lactobacillus Acidophilus (Bacid Acidophilus) 1 cap PO DAILY [facility] Last Admin: 07/13/18 09:52 Dose: 1 cap Levothyroxine Sodium (Synthroid) 88 mcg PO DAILY@0630 [facility] Last Admin: 07/13/18 05:54 Dose: 88 mcg Methylprednisolone (Solu-Medrol) 50 mg IV Q8H [facility] Montelukast Sodium (Singulair) 10 mg PO [facility] Last Admin: 07/12/18 21:04 Dose: 10 mg Morphine Sulfate (Morphine) 2 mg IVP Q4 PRN PRN Reason: Pain, severe (8-10) Multivitamins/Minerals (Therapeutic-M Tab) 1 tab PO DAILY [facility] Last Admin: 07/13/18 11:45 Dose: 1 tab Ondansetron HCl (Zofran Inj) 4 mg IVP ONCE PRN PRN Reason: Nausea/Vomiting Oxycodone/Acetaminophen (Percocet 5/325 Mg Tab) 1 tab PO Q4 PRN PRN Reason: Pain, Mild (1-3) Stop: 07/15/18 14:27 Oxycodone/Acetaminophen (Percocet 5/325 Mg Tab) 2 tab PO Q4 PRN PRN Reason: Pain, moderate (4-7) Stop: 07/15/18 14:27 Prednisone (Prednisone Tab) 5 mg PO DAILY [facility] Senna/Docusate Sodium (Senokot S 50 Mg-8.6 Mg) 2 tab PO [facility] Last Admin: 07/12/18 21:02 Dose: 2 tab - Labs Labs: 07/13/18 05:30 07/13/18 05:30 - Constitutional Appears: Well, Non-toxic, No Acute Distress - Head Exam Head Exam: ATRAUMATIC, NORMOCEPHALIC - Eye Exam Eye Exam: Normal appearance, PERRL - ENT Exam ENT Exam: Mucous Membranes Moist, Normal Exam - Neck Exam Neck Exam: Full ROM. absent: Lymphadenopathy - Respiratory Exam Respiratory Exam: Clear to Ausculation Bilateral, NORMAL BREATHING PATTERN. absent: Rales, Rhonchi, Wheezes - Cardiovascular Exam Cardiovascular Exam: REGULAR RHYTHM, +S1, +S2 - GI/Abdominal Exam GI & Abdominal Exam: Soft, Normal Bowel Sounds. absent: Firm, Guarding, Rigid - Extremities Exam Extremities Exam: Normal Capillary Refill Additional comments: Hemo Vac noted to surgical site right knee - Neurological Exam Neurological Exam: Alert, Awake, Oriented x3 - Psychiatric Exam Psychiatric exam: Normal Affect, Normal Mood - Skin Skin Exam: Normal Color Assessment and Plan - Assessment and Plan (Free Text) Assessment: 63 y/o female with PMHx of Upper Left Interstitial lung disease, rheumatoid arthritis, hypothyroidism, Asthma, and hyperlipidemia was seen and evaluated for Right Knee Revisional Surgery POD1. Plan: RIGHT Knee Revisional Surgery - pain controlled - OT/PT- physical therapy recommends skilled PT services to allow patient safe return to prior living env. - Abx as per Orthopedics - Continue with spirometry Urinary Retention - acute, symptomatic - Chin catheter was inserted overnight as patient unable to void, 900 cc and then 1600 cc drained via chin - medicine placed order to discontinue chin at this time, however patient refusing removal of chin catheter at this time Leukocytosis likely secondary post op - WBC at 12.4 - will continue to monitor - F/U CBC/BMP Pulmonary Interstitial Lung Disease with adrenal insufficiency - chronic, stable - continue home medication- Breo Ellipta HS, Prednisone 5 mg PO DAILY Obesity - BMI 41 - Heart Healthy Diet Hyperlipidemia - chronic, controlled - continue home medication- Simvastatin 40 mg PO HS Asthma - chronic, stable - continue home medication- Montelukast 10 mg PO HS Hypothyroidism - chronic, stable - continue home medication- Synthroid 88 mcg DAILY Rheumatoid Arthritis - chronic arthritis - Continue home medication- Alendronate 70 mg PO QWK, Rituxan 100 mg/10 ml Q6 months DVT Prophylaxis - Lovenox 40 mg DAILY
[2018-07-13] MEDS: Oxycodone/Acetaminophen 5/325 mg Tab PO PRN ×2 (14:30→19:42)
[2018-07-13 16:11] VITALS: RESP 18
[2018-07-13] MEDS: Lactated Ringer's 1,000 ML IV SCH ×2 (20:03→21:17)
[2018-07-13] MEDS: Docusate-Senna 50 mg-8.6 mg Tab PO SCH (21:13)
[2018-07-13] MEDS: BREO ELLIPTA INH SCH (21:14)
[2018-07-14] MEDS: Levothyroxine 88 MCG TAB PO SCH (06:33)
[2018-07-14] MEDS: Lactated Ringer's 1,000 ML IV SCH ×2 (06:34→06:48)
[2018-07-14 06:53] LABS: HEMOGLOBIN 12.5 g/dL (12.0-16.0); MEAN CELL VOLUME 94.5 fl (81.0-99.0); MEAN CORPUSCULAR HEMOGLOBIN 32.4 pg (27.0-31.0); MEAN CORPUSCULAR HGB CONC 34.2 g/dL (33.0-37.0); RBC 3.87 Mil/uL (3.80-5.20); RED CELL DISTRIBUTION WIDTH 13.6 % (11.5-14.5); WHITE BLOOD COUNT 9.5 K/uL (4.8-10.8)
[2018-07-14 07:19] LABS: BLOOD UREA NITROGEN 18 mg/dl (7-17); CALCIUM 9.6 mg/dL (8.4-10.2); GFR NON-AFRICAN AMERICAN > 60
--- NOTE | 2018-07-14 07:45 | CP.PCM.DIS ---
Provider - Provider Date of Admission: 07/12/18 14:26 Attending physician: Michelle Arguello MD Primary care physician: Dago Serna III, MD Consults: 07/12/18 07:41 Orthopedic Consult Routine Comment: Consulting Provider: Dago Serna III Consulting Physician: Dago Serna III Reason for Consult: right knee revision TKR 07/12/18 14:26 Case Management Referral Routine Comment: Physician Instructions: Reason For Exam: Reason for Referral: Discharge Planning 07/13/18 09:41 Cardiology Consult Routine Comment: cardiac eval Consulting Provider: Demario Mercer Consulting Physician: Demario Mercer Reason for Consult: cardiac eval Time Spent in preparation of Discharge (in minutes): 30 Hospital Course - Lab Results Lab Results: Micro Results 07/12/18 13:30 Knee Right Fungal Culture - Preliminary 07/12/18 12:35 Knee Right Fungal Culture - Preliminary 07/12/18 09:55 Knee - Right Gram Stain - Final 07/12/18 09:55 Knee - Right Gram Stain - Final 07/12/18 09:55 Knee - Right Gram Stain - Final 07/12/18 09:55 Knee - Right Gram Stain - Final 07/12/18 09:55 Knee - Right Gram Stain - Final 07/12/18 09:55 Knee - Right Gram Stain - Final 07/12/18 09:55 Knee - Right Gram Stain - Final 07/12/18 13:30 Body Fluid - Knee-Right Gram Stain - Final 07/12/18 13:30 Body Fluid - Knee-Right Body Fluid Culture - Preliminary NO GROWTH AFTER 24 HOURS 07/12/18 12:35 Body Fluid - Knee-Right Gram Stain - Final 07/12/18 12:35 Body Fluid - Knee-Right Body Fluid Culture - Preliminary NO GROWTH AFTER 24 HOURS 07/12/18 12:35 Other: Please Indicate Mycobacterial Culture - Preliminary 07/12/18 13:30 Other: Please Indicate Mycobacterial Culture - Preliminary Most Recent Lab Values WBC 9.5 K/uL (4.8-10.8) 07/14/18 05:50 RBC 3.87 Mil/uL (3.80-5.20) 07/14/18 05:50 Hgb 12.5 g/dL (12.0-16.0) 07/14/18 05:50 Hct 36.6 % (34.0-47.0) 07/14/18 05:50 MCV 94.5 fl (81.0-99.0) D 07/14/18 05:50 MCH 32.4 pg (27.0-31.0) H 07/14/18 05:50 MCHC 34.2 g/dL (33.0-37.0) 07/14/18 05:50 RDW 13.6 % (11.5-14.5) 07/14/18 05:50 Plt Count 208 K/uL (130-400) 07/14/18 05:50 MPV 8.2 fl (7.2-11.7) 07/12/18 07:31 Neut % (Auto) 58.5 % (50.0-75.0) 07/12/18 07:31 Lymph % (Auto) 28.8 % (20.0-40.0) 07/12/18 07:31 Whitley % (Auto) 9.2 % (0.0-10.0) 07/12/18 07:31 Eos % (Auto) 2.8 % (0.0-4.0) 07/12/18 07:31 Baso % (Auto) 0.7 % (0.0-2.0) 07/12/18 07:31 Neut # (Auto) 3.3 K/uL (1.8-7.0) 07/12/18 07:31 Lymph # (Auto) 1.6 K/uL (1.0-4.3) 07/12/18 07:31 Whitley # (Auto) 0.5 K/uL (0.0-0.8) 07/12/18 07:31 Eos # (Auto) 0.2 K/uL (0.0-0.7) 07/12/18 07:31 Baso # (Auto) 0.0 K/uL (0.0-0.2) 07/12/18 07:31 Sodium 138 mmol/l (132-148) 07/14/18 05:50 Potassium 4.9 MMOL/L (3.6-5.0) 07/14/18 05:50 Chloride 103 mmol/L (98-107) 07/14/18 05:50 Carbon Dioxide 29 mmol/L (22-30) 07/14/18 05:50 Anion Gap 11 (10-20) 07/14/18 05:50 BUN 18 mg/dl (7-17) H 07/14/18 05:50 Creatinine 0.8 mg/dl (0.7-1.2) 07/14/18 05:50 Est GFR ( Amer) > 60 07/14/18 05:50 Est GFR (Non-Af Amer) > 60 07/14/18 05:50 Random Glucose 140 mg/dL (65-105) H 07/14/18 05:50 Calcium 9.6 mg/dL (8.4-10.2) 07/14/18 05:50 Fluid Type Synovial fluid 07/12/18 13:20 Synovial WBC 16.0 /mm3 (0.0-150.0) 07/12/18 13:20 Synovial RBC 3069.0 /mm3 (0.0-0.0) H 07/12/18 13:20 Synovial Neutrophils 21.0 % (0-0) H 07/12/18 13:20 Synovial Lymphocytes 27.0 % (0-0) H 07/12/18 13:20 Synov Monos/Macrophage 2 % (0-0) H 07/12/18 13:20 Synovial Fluid Comment Slightly bloody 07/12/18 13:20 Blood Type O NEGATIVE 07/12/18 07:31 Blood Type Confirm O NEGATIVE 07/12/18 08:00 Antibody Screen Negative 07/12/18 07:31 Crossmatch See Detail 07/12/18 07:31 BBK History Checked No verified bt 07/12/18 07:31 - Hospital Course Hospital Course: 63 y/o female with PMHx of Upper Left Interstitial lung disease, rheumatoid arthritis, hypothyroidism, Asthma, and hyperlipidemia was seen and evaluated for Right Knee Revisional Surgery POD2. Patient states she has some pain overnight, however, it is controlled. Patient was evaluated by physical therapy, and patient is stable for discharge to a subacute rehab facility. Patient denies any complaints of fever, nausea, vomiting, SOB or CP. Patient had two episodes of urinary retention, chin catheter was discontinued and patient was straight catheterized overnight. Patient received Clindamycin IV x 3 doses prophylaxis. RIGHT Knee Revisional Surgery - pain control - OT/PT- continue physical therapy services to allow patient safe return to prior living env. 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 - chronic, stable - continue home medication- Breo Ellipta HS, Prednisone 5 mg PO DAILY Obesity - BMI 41 - Heart Healthy Diet Hyperlipidemia - chronic, controlled - continue home medication- Simvastatin 40 mg PO HS Asthma - chronic, stable - continue home medication- Montelukast 10 mg PO HS Hypothyroidism - chronic, stable - continue home medication- Synthroid 88 mcg DAILY Rheumatoid Arthritis - chronic arthritis - Continue home medication- Alendronate 70 mg PO QWK, Rituxan 100 mg/10 ml Q6 months DVT Prophylaxis - Lovenox 40 mg DAILY - Date & Time of H&P Date of H&P: 07/14/18 Time of H&P: 07:47 Discharge Exam - Head Exam Head Exam: ATRAUMATIC, NORMOCEPHALIC - Eye Exam Eye Exam: Normal appearance, PERRL - ENT Exam ENT Exam: Mucous Membranes Moist - Neck Exam Neck exam: Full Rom - Respiratory Exam Respiratory Exam: Clear to PA & Lateral, NORMAL BREATHING PATTERN. absent: Rales, Rhonchi, Wheezes - Cardiovascular Exam Cardiovascular Exam: REGULAR RHYTHM, +S1, +S2 - GI/Abdominal Exam GI & Abdominal Exam: Normal Bowel Sounds, Soft. absent: Distended, Firm, Guarding, Tenderness - Rectal Exam Rectal Exam: Deferred - Extremities Exam Extremities exam: normal capillary refill, tenderness Additional comments: hemovac in place, mild pain with knee range of motion - Neurological Exam Neurological exam: Alert, Oriented x3 - Psychiatric Exam Psychiatric exam: Normal Affect, Normal Mood - Skin Skin Exam: Normal Color Discharge Plan - Follow Up Plan Condition: GOOD Disposition: HOME/ ROUTINE Patient education suggested?: Yes Instructions: Total Knee Replacement (DC) Referrals: Dago Serna III, MD [Primary Care Provider] - Clinical Quality Measures - CQM - Stroke Antithrombotic Prescribed: Yes
[2018-07-14 07:48] VITALS: BP 126/85; PULSE 78; TEMP 98.6; O2SAT 97
[2018-07-14] MEDS: Cholecalciferol 1,000 INTLU TAB PO SCH (09:34)
[2018-07-14] MEDS: Citracal+D 315mg/250IU PO SCH (09:34)
[2018-07-14] MEDS: Lactobacillus Acidophilus 500 MU Cap PO SCH (09:35)
[2018-07-14] MEDS: Enoxaparin 40 mg Syringe SC SCH (09:35)
--- NOTE | 2018-07-14 09:57 | CP.PCM.PN ---
Subjective - Date & Time of Evaluation Date of Evaluation: 07/14/18 Time of Evaluation: 09:30 - Subjective Subjective: NO CHEST PAIN OR SOB Objective - Vital Signs/Intake and Output Vital Signs (last 24 hours): Temp Pulse Resp BP Pulse Ox 98.6 F 78 18 126/85 97 07/14/18 07:47 07/14/18 07:47 07/14/18 07:47 07/14/18 07:47 07/14/18 07:47 - Medications Medications: Current Medications Acetaminophen (Tylenol 325mg Tab) 650 mg PO Q4 PRN PRN Reason: Fever 101 degrees fahrenheit Atorvastatin Calcium (Lipitor) 20 mg PO [facility] Last Admin: 07/13/18 21:14 Dose: 20 mg Calcium/Vitamin D (Citracal+D 315mg/250iu) 1 tab PO DAILY [facility] Last Admin: 07/14/18 09:34 Dose: 1 tab Cholecalciferol (Vitamin D) 2,000 intlu PO DAILY [facility] Last Admin: 07/14/18 09:34 Dose: 2,000 intlu Enoxaparin Sodium (Lovenox) 40 mg SC DAILY [facility]; Protocol Last Admin: 07/14/18 09:35 Dose: 40 mg Ferrous Sulfate (Feosol) 325 mg PO BID [facility] Last Admin: 07/14/18 09:33 Dose: 325 mg Folic Acid (Folic Acid) 1 mg PO DAILY [facility] Last Admin: 07/14/18 09:35 Dose: 1 mg Home Med (Patient's Own Medication) 1 unit INH [facility] Last Admin: 07/13/18 21:14 Dose: 1 unit Lactated Ringer's (Lactated Ringer's) 1,000 mls @ 100 mls/hr IV .Q10H [facility] Last Admin: 07/14/18 06:48 Dose: Not Given Lactated Ringer's (Lactated Ringer's) 1,000 mls @ 100 mls/hr IV .Q10H [facility] Last Admin: 07/14/18 06:34 Dose: Not Given Lactobacillus Acidophilus (Bacid Acidophilus) 1 cap PO DAILY [facility] Last Admin: 07/14/18 09:35 Dose: 1 cap Levothyroxine Sodium (Synthroid) 88 mcg PO DAILY@0630 [facility] Last Admin: 07/14/18 06:33 Dose: 88 mcg Methylprednisolone (Solu-Medrol) 50 mg IV Q8H [facility] Last Admin: 07/14/18 02:55 Dose: 50 mg Montelukast Sodium (Singulair) 10 mg PO HS [facility] Last Admin: 07/13/18 21:14 Dose: 10 mg Morphine Sulfate (Morphine) 2 mg IVP Q4 PRN PRN Reason: Pain, severe (8-10) Multivitamins/Minerals (Therapeutic-M Tab) 1 tab PO DAILY [facility] Last Admin: 07/13/18 11:45 Dose: 1 tab Ondansetron HCl (Zofran Inj) 4 mg IVP ONCE PRN PRN Reason: Nausea/Vomiting Oxycodone/Acetaminophen (Percocet 5/325 Mg Tab) 1 tab PO Q4 PRN PRN Reason: Pain, Mild (1-3) Stop: 07/15/18 14:27 Oxycodone/Acetaminophen (Percocet 5/325 Mg Tab) 2 tab PO Q4 PRN PRN Reason: Pain, moderate (4-7) Stop: 07/15/18 14:27 Last Admin: 07/13/18 19:42 Dose: 2 tab Prednisone (Prednisone Tab) 5 mg PO DAILY [facility] Last Admin: 07/14/18 09:34 Dose: 5 mg Senna/Docusate Sodium (Senokot S 50 Mg-8.6 Mg) 2 tab PO [facility] Last Admin: 07/13/18 21:13 Dose: 2 tab - Labs Labs: 07/14/18 05:50 07/14/18 05:50 - Respiratory Exam Respiratory Exam: Clear to Ausculation Bilateral - Cardiovascular Exam Cardiovascular Exam: REGULAR RHYTHM, +S1, +S2 - Extremities Exam Additional comments: RIGHT KNEE SEEN DURING DRESSING CHANGE AND IT IS CLEAN WITHOUT ANY SIGNS OF I NFECTION Assessment and Plan - Assessment and Plan (Free Text) Assessment: REVISION OF RIGHT TKR RA HYPERLIPIDEMIA Plan: FOR DISCHARGE TO [facility] TODAY
--- NOTE | 2018-07-14 10:31 | CP.PCM.PN ---
Subjective - Date & Time of Evaluation Date of Evaluation: 07/14/18 Time of Evaluation: 09:00 - Subjective Subjective: Patient seen and examined at bedside with Dr. Serna. Pain well controlled. No new complaints. Objective - Vital Signs/Intake and Output Vital Signs (last 24 hours): Temp Pulse Resp BP Pulse Ox 98.6 F 78 18 126/85 97 07/14/18 07:47 07/14/18 07:47 07/14/18 07:47 07/14/18 07:47 07/14/18 07:47 - Medications Medications: Current Medications Acetaminophen (Tylenol 325mg Tab) 650 mg PO Q4 PRN PRN Reason: Fever 101 degrees fahrenheit Atorvastatin Calcium (Lipitor) 20 mg PO [facility] Last Admin: 07/13/18 21:14 Dose: 20 mg Calcium/Vitamin D (Citracal+D 315mg/250iu) 1 tab PO DAILY [facility] Last Admin: 07/14/18 09:34 Dose: 1 tab Cholecalciferol (Vitamin D) 2,000 intlu PO DAILY [facility] Last Admin: 07/14/18 09:34 Dose: 2,000 intlu Enoxaparin Sodium (Lovenox) 40 mg SC DAILY [facility]; Protocol Last Admin: 07/14/18 09:35 Dose: 40 mg Ferrous Sulfate (Feosol) 325 mg PO BID [facility] Last Admin: 07/14/18 09:33 Dose: 325 mg Folic Acid (Folic Acid) 1 mg PO DAILY [facility] Last Admin: 07/14/18 09:35 Dose: 1 mg Home Med (Patient's Own Medication) 1 unit INH [facility] Last Admin: 07/13/18 21:14 Dose: 1 unit Lactated Ringer's (Lactated Ringer's) 1,000 mls @ 100 mls/hr IV .Q10H [facility] Last Admin: 07/14/18 06:48 Dose: Not Given Lactated Ringer's (Lactated Ringer's) 1,000 mls @ 100 mls/hr IV .Q10H [facility] Last Admin: 07/14/18 06:34 Dose: Not Given Lactobacillus Acidophilus (Bacid Acidophilus) 1 cap PO DAILY [facility] Last Admin: 07/14/18 09:35 Dose: 1 cap Levothyroxine Sodium (Synthroid) 88 mcg PO DAILY@0630 [facility] Last Admin: 07/14/18 06:33 Dose: 88 mcg Methylprednisolone (Solu-Medrol) 50 mg IV Q8H [facility] Last Admin: 07/14/18 02:55 Dose: 50 mg Montelukast Sodium (Singulair) 10 mg PO HS [facility] Last Admin: 07/13/18 21:14 Dose: 10 mg Morphine Sulfate (Morphine) 2 mg IVP Q4 PRN PRN Reason: Pain, severe (8-10) Multivitamins/Minerals (Therapeutic-M Tab) 1 tab PO DAILY [facility] Last Admin: 07/13/18 11:45 Dose: 1 tab Ondansetron HCl (Zofran Inj) 4 mg IVP ONCE PRN PRN Reason: Nausea/Vomiting Oxycodone/Acetaminophen (Percocet 5/325 Mg Tab) 1 tab PO Q4 PRN PRN Reason: Pain, Mild (1-3) Stop: 07/15/18 14:27 Oxycodone/Acetaminophen (Percocet 5/325 Mg Tab) 2 tab PO Q4 PRN PRN Reason: Pain, moderate (4-7) Stop: 07/15/18 14:27 Last Admin: 07/13/18 19:42 Dose: 2 tab Prednisone (Prednisone Tab) 5 mg PO DAILY [facility] Last Admin: 07/14/18 09:34 Dose: 5 mg Senna/Docusate Sodium (Senokot S 50 Mg-8.6 Mg) 2 tab PO [facility] Last Admin: 07/13/18 21:13 Dose: 2 tab - Labs Labs: 07/14/18 05:50 07/14/18 05:50 - Extremities Exam Additional comments: R knee: Dressings CDI Incision CDI with marky, no drainage or erythema SP/DP/TN intact Motor intact EHL/FHL/TA/G pedal pulse intact calves soft NT b/l Assessment and Plan (1) Painful total knee replacement, right Assessment & Plan: POD#2 s/p R revision TKA -Dressings changed -CPM and knee imm as per order -PT/OT PWB 25% -DVT ppx -orthopedically stable for d/c to [facility] -f/u in office within 7-10 days -above d/w Dr. Serna in agreement Status: Acute
[2018-07-14] MEDS: Oxycodone/Acetaminophen 5/325 mg Tab PO PRN (10:46)
[2018-07-14] MEDS: Multivitamin With Minerals Tab PO SCH (10:47)
--- NOTE | 2018-07-17 12:34 | OP ---
PROCEDURE DATE: 07/12/2018 PREOPERATIVE DIAGNOSIS: Painful unstable right total knee replacement arthroplasty. POSTOPERATIVE DIAGNOSES: 1. Painful unstable total knee replacement secondary to fracture of the tibial polyethylene post. 2. Partial rupture of medial collateral ligament. 3. Synovitis, anterior and posterior compartments. 4. Posterior capsular contracture. OPERATION PERFORMED: 1. Revision total knee replacement arthroplasty, one component. 2. Primary repair and reinforcement of medial collateral ligament. 3. Posterior capsular release. 4. Anterior and posterior synovectomy. 5. Excision of skin and subcutaneous tissue and some muscle. SPECIMEN REMOVED: Fractured tibial polyethylene synovium, posterior capsule. ESTIMATED BLOOD LOSS: 20 mL. BLOOD PRODUCTS GIVEN: None. One Hemovac drain. POSTOPERATIVE CONDITION: Stable. TIME IN THE ROOM: Anesthesia induction time 11:00 a.m., incision time 12:15. OPERATIVE INDICATIONS: Laura Randolph is a 63-year-old endomorphic female, who is a retired nurse. The patient presents after sustaining a fall in [place]. The patient noted giving way of the prosthesis, pain, and restricted range of motion. The patient obtained an opinion in [place] with a physician surgeon, who said there were no problems. The patient presents to my office with the pain and instability of the knee with tenderness near the medial collateral ligament gapping and anterior instability. Pros, cons, risks and benefits of surgical exploration, possible revision of one or three components were discussed. The possibility of mechanical failure, infection, thromboembolic disease, the possibility of dislocation, the possibility of nerve injury, the possibility of secondary or even tertiary surgery was discussed. The patient can no longer stand the discomfort and wished the surgery to be accomplished. OPERATIVE PROCEDURE: After having obtained informed consent in the above fashion from the patient and her , who is also a retired nurse after having identified side, site, and procedure, and a critical pause/time-out, after the satisfactory induction of the anesthetic, the patient identified as Laura Randolph in the supine position with all bony prominences well padded. The right lower extremity was prepped and free draped in the usual fashion for lower extremity surgery. The tourniquet had been applied, but was not yet inflated. After exsanguinating the limb using a 6-inch Esmarch bandage, the tourniquet which had been applied, was inflated to 350 mmHg. An ellipse of skin was described two fingerbreadths proximal to the incision, two fingerbreadths distal. The skin incision was carried down through the skin and subcutaneous tissue. The skin and subcutaneous tissue were excised. Medial arthrotomy was accomplished. The patella was everted. The knee was flexed. Dissection was carried out posteromedially to the direct head of the semimembranosus tendon, a portion of the patellar ligament insertion was elevated. Dissection was carried around posteromedially and posterolaterally. A portion of the iliotibial band was released, and the tibia was dislocated anteriorly. There was found to be immediately a fracture of the tibial polyethylene at the junction of the tibial polyethylene and the polyethylene post at the area of the intersection of the post-cam mechanism. The polyethylene was removed. The tibia was dislocated anteriorly. Great care was taken to protect the femoral component with lap sponges. The polyethylene plastic was removed. The remainder of the plastic was removed. The wound was thoroughly irrigated. This having been accomplished, the appropriate size 22-mm polyethylene was introduced. Flexion/extension gap was found to be balanced. There was found to be evidence of instability at the medial collateral ligament. Medial collateral ligament was identified, and after the 22-mm polyethylene had been introduced, the knee was reduced. An anterior and posterior synovectomy had been accomplished prior to introduction of the definitive and revision of the definitive polyethylene. Initial polyethylene had been removed. The [facility] healthcare liaison was placed on the padded femoral component and tibial component exposing the posterior compartment. Posterior synovectomy was accomplished. Anterior synovectomy was accomplished. Attention was turned now after the 22-mm polyethylene had been introduced, flexion/extension gap was found to be balanced and stable. The injury to the medial collateral ligament was identified using FiberWire. An internal brace technique was employed in the area of the medial collateral ligament and in the area of the medial epicondyle. Drilling was accomplished and the SwiveLock anchor was introduced with the FiberTape. This having been accomplished 10 mm distal to the joint line at the insertion of the collateral ligament, the secondary drilling was accomplished and the internal brace was completed with the knee in approximately 20 degrees of lack of terminal extension for proper tensioning of the medial collateral ligament. The internal brace SwiveLock construct was completed, trimmed, and there was found to be excellent stability. At this point in time, with the remaining FiberWire, using a modified Sherman suture, the medial collateral ligament superficial was repaired. This having been accomplished, the wound was thoroughly irrigated. Anterior and posterior synovectomy having been accomplished, medial collateral ligament having been accomplished, it should be noted that the posterior capsule was released on exposure of the tibial component to remove all of the fractured tibial polyethylene. The posterior capsule was released. The wound was thoroughly irrigated. Closure of the medial arthrotomy was with #2 FiberWire followed by 0 Vicryl, 2-0 Vicryl, and mraky for skin over an 8-inch suction Hemovac drain. Alexander Rodriges compression dressing was employed. It should be noted that the patella balance was found to be acceptable. Flexion/extension balance was found to be acceptable. There was no gross evidence of instability. Again, the concept that this balance may have to be tweaked later was discussed with the patient and her , and was again reinforced postoperatively, although the position at the operating table was acceptable. Alexander Rodriges compression dressing and knee immobilizers were applied. Dago Serna MD
== END 2018-07-14 12:31 | DRG 467 ==
LOC: H.OPSURG 06:07 → H.MEDSURG1 14:26
PROVIDERS: ADMIT Internal Medicine; ATTEND Internal Medicine
PROC: 3E0T3BZ Introduction of Anesthetic Agent into Peripheral Nerves and Plexi, Percutaneous Approach (ICD-10-PCS; 2018-07-12)
PROC: 0SBC0ZZ Excision of Right Knee Joint, Open Approach (ICD-10-PCS; 2018-07-12)
PROC: 0MQN0ZZ Repair Right Knee Bursa and Ligament, Open Approach (ICD-10-PCS; 2018-07-12)
PROC: 0SPV0JZ Removal of Synthetic Substitute from Right Knee Joint, Tibial Surface, Open Approach (ICD-10-PCS; principal; 2018-07-12 10:15)
PROC: 0SRV0JZ Replacement of Right Knee Joint, Tibial Surface with Synthetic Substitute, Open Approach (ICD-10-PCS; 2018-07-12 10:15)
PROC: 3E0T3BZ Introduction of Anesthetic Agent into Peripheral Nerves and Plexi, Percutaneous Approach (ICD-10-PCS; 2018-07-12 10:15)
DX: T84.84XA Pain due to internal orthopedic prosthetic devices, implants and grafts, initial encounter (principal); E27.40 Unspecified adrenocortical insufficiency; Z68.41 Body mass index [BMI] 40.0-44.9, adult; D62 Acute posthemorrhagic anemia; J84.9 Interstitial pulmonary disease, unspecified; T84.012A Broken internal right knee prosthesis, initial encounter; M06.9 Rheumatoid arthritis, unspecified; J45.20 Mild intermittent asthma, uncomplicated; S83.411A Sprain of medial collateral ligament of right knee, initial encounter; E66.9 Obesity, unspecified; R33.8 Other retention of urine; E78.5 Hyperlipidemia, unspecified; M65.9 Synovitis and tenosynovitis, unspecified; E03.9 Hypothyroidism, unspecified; J44.9 Chronic obstructive pulmonary disease, unspecified; Z88.0 Allergy status to penicillin; Z91.018 Allergy to other foods; Z79.890 Hormone replacement therapy; Z96.653 Presence of artificial knee joint, bilateral; M24.561 Contracture, right knee; D72.829 Elevated white blood cell count, unspecified; Y79.2 Prosthetic and other implants, materials and accessory orthopedic devices associated with adverse incidents; N99.89 Other postprocedural complications and disorders of genitourinary system; T84.022A Instability of internal right knee prosthesis, initial encounter